=== PATIENT | female | born 1970 | race Caucasian/White ===

== ENCOUNTER 2016-12-15 08:27 | Emergency (ER) | payer MEDICARE | END 2016-12-15 09:25 | disposition home or self-care (01) | LOC: D.ER 08:27 | DX: J06.9 Acute upper respiratory infection, unspecified (principal); J80 Acute respiratory distress syndrome; J44.9 Chronic obstructive pulmonary disease, unspecified ==

== ENCOUNTER → 2016-12-25 14:00 | Outpatient (CLI) | payer MEDICARE | END | disposition home or self-care (01) | LOC: D.CT 14:00 | DX: J44.9 Chronic obstructive pulmonary disease, unspecified (principal) ==

== ENCOUNTER 2017-02-03 06:25 | Emergency (ER) | payer MEDICARE | END 2017-02-03 07:35 | disposition home or self-care (01) | LOC: D.ER 06:25 | DX: J06.9 Acute upper respiratory infection, unspecified (principal); J01.90 Acute sinusitis, unspecified; J02.9 Acute pharyngitis, unspecified; J80 Acute respiratory distress syndrome; J44.9 Chronic obstructive pulmonary disease, unspecified; F17.200 Nicotine dependence, unspecified, uncomplicated ==

== ENCOUNTER 2017-02-04 17:26 | Emergency (ER) | payer MEDICARE ==
[2017-02-04 19:53] LABS: BASOPHILS 0.4 % (0-2); EOSINOPHILS 3.3 % (0-7); HEMATOCRIT 34.6 % (36.0-48.0); HEMOGLOBIN 11.5 g/dL (12-16); IMMATURE GRANULOCYTES 0.2 % (0-5); LYMPHOCYTES 11.6 % (15-50); MCH 30.3 pg (26.0-34.0); MCHC 33.2 g/dL (31.0-37.0); MCV 91.1 fL (80.0-100.0); MEAN PLATELET VOLUME 10.5 fL (7.4-10.4); MONOCYTES 10.3 % (2-11); NEUTROPHILS 74.2 % (40-80); PLATELET COUNT 321 10x3/uL (130-400); RDW 13.2 % (11.5-14.5); WBC 12.5 10x3/uL (4.8-10.8)
[2017-02-04 20:13] LABS: ALBUMIN 2.8 g/dL (3.4-5.0); ANION GAP 14.4 mmol/L (8-16); BILIRUBIN - TOTAL 0.24 mg/dL (0.2-1.3); CALCIUM 8.6 mg/dL (8.5-10.1); CARBON DIOXIDE 24.6 mmol/L (21.0-32.0); CREATININE - SERUM 1.3 mg/dL (0.6-1.3); PROTEIN - SERUM 6.2 g/dL (6.4-8.2)
== END 2017-02-04 21:07 | disposition home or self-care (01) ==
LOC: D.ER 17:26
PROVIDERS: Physician Assistant
DX: R50.9 Fever, unspecified (principal); R53.81 Other malaise; J20.9 Acute bronchitis, unspecified; J44.9 Chronic obstructive pulmonary disease, unspecified; F17.200 Nicotine dependence, unspecified, uncomplicated

== ENCOUNTER → 2017-05-08 13:10 | Outpatient (CLI) | payer MEDICARE, MEDICAID ==
[2017-05-09 10:19] LABS: ANA REFLEX - DIRECT Negative (Negative)
== END | disposition home or self-care (01) ==
LOC: D.RT 13:10
PROVIDERS: Internal Medicine Pulmonary Disease
DX: J18.9 Pneumonia, unspecified organism (principal); R91.1 Solitary pulmonary nodule

== ENCOUNTER 2017-06-26 09:37 | Emergency (ER) | payer MEDICARE, MEDICAID ==
[2017-06-26 10:23] LABS: BASOPHILS 0.6 % (0-2); HEMATOCRIT 45.2 % (36.0-48.0); HEMOGLOBIN 15.4 g/dL (12-16); IMMATURE GRANULOCYTES 0.2 % (0-5); LYMPHOCYTES 28.8 % (15-50); MCH 31.4 pg (26.0-34.0); MCHC 34.1 g/dL (31.0-37.0); MCV 92.2 fL (80.0-100.0); MEAN PLATELET VOLUME 9.5 fL (7.4-10.4); MONOCYTES 10.8 % (2-11); NEUTROPHILS 55.6 % (40-80); PLATELET COUNT 376 10x3/uL (130-400); RDW 12.9 % (11.5-14.5); WBC 10.3 10x3/uL (4.8-10.8)
[2017-06-26 10:30] LABS: APPEARANCE CLOUDY (CLEAR); BACTERIA MANY /hpf (NONE SEEN); BILIRUBIN NEGATIVE (NEGATIVE); COLOR YELLOW (YELLOW); GLUCOSE NEGATIVE (NEGATIVE); KETONE NEGATIVE (NEGATIVE); MUCUS <1+ /lpf (NONE SEEN); NITRITE NEGATIVE (NEGATIVE); PROTEIN 1+ mg/dL (NEGATIVE); SPECIFIC GRAVITY 1.015 (1.005-1.020); UROBILINOGEN NORMAL (NORMAL)
[2017-06-26 10:38] LABS: ALBUMIN 3.8 g/dL (3.4-5.0); ANION GAP 12.7 mmol/L (8-16); BILIRUBIN - TOTAL 0.2 mg/dL (0.2-1.3); CALCIUM 9.2 mg/dL (8.5-10.1); CARBON DIOXIDE 26.3 mmol/L (21.0-32.0); CREATININE - SERUM 1.1 mg/dL (0.6-1.3); PROTEIN - SERUM 7.7 g/dL (6.4-8.2)
[2017-08-15 02:59] VITALS: BMI 29.2
== END 2017-06-26 13:10 | disposition home or self-care (01) ==
LOC: D.ER 09:37
PROVIDERS: Emergency Medicine
DX: N39.0 Urinary tract infection, site not specified (principal); N20.1 Calculus of ureter; J44.9 Chronic obstructive pulmonary disease, unspecified

== ENCOUNTER 2017-08-11 20:11 | Emergency (ER) | payer MEDICARE ==
[2017-08-11 20:42] LABS: BASOPHILS 0.2 % (0-2); EOSINOPHILS 1.5 % (0-7); HEMATOCRIT 37.2 % (36.0-48.0); HEMOGLOBIN 12.8 g/dL (12-16); IMMATURE GRANULOCYTES 0.2 % (0-5); LYMPHOCYTES 13.2 % (15-50); MCH 31.2 pg (26.0-34.0); MCHC 34.4 g/dL (31.0-37.0); MCV 90.7 fL (80.0-100.0); MEAN PLATELET VOLUME 9.8 fL (7.4-10.4); MONOCYTES 9.9 % (2-11); PLATELET COUNT 304 10x3/uL (130-400); RDW 12.6 % (11.5-14.5); WBC 13.8 10x3/uL (4.8-10.8)
[2017-08-11 20:52] LABS: APPEARANCE HAZY (CLEAR); BILIRUBIN NEGATIVE (NEGATIVE); COLOR YELLOW (YELLOW); GLUCOSE NEGATIVE (NEGATIVE); KETONE NEGATIVE (NEGATIVE); NITRITE NEGATIVE (NEGATIVE); PH 6.5 (5.0-6.0); PROTEIN NEGATIVE (NEGATIVE); UROBILINOGEN NORMAL (NORMAL)
[2017-08-11 20:59] LABS: BILIRUBIN - TOTAL 0.24 mg/dL (0.2-1.3); CARBON DIOXIDE 25.7 mmol/L (21.0-32.0); CREATININE - SERUM 1.3 mg/dL (0.6-1.3); POTASSIUM - SERUM 3.7 mmol/L (3.5-5.1)
[2017-08-11 21:04] LABS: AMORPHOUS SEDIMENT >1+ /lpf (NONE SEEN); BACTERIA MODERATE /hpf (NONE SEEN); EPITHELIAL CELLS 0-5 /hpf (0-5); GRANULAR CAST OCC /lpf (NONE SEEN); HYALINE CAST OCC /lpf (NONE SEEN); RED CELLS - URINE 0-5 /hpf (0-5); WHITE CELLS - URINE >50 /hpf (0-5); YEAST >1+ WITH HYPHAE /hpf (NONE SEEN)
[2017-08-15 02:59] VITALS: BMI 29.2
== END 2017-08-11 23:21 | disposition home or self-care (01) ==
LOC: D.ER 20:11
PROVIDERS: Family Medicine
DX: N10 Acute pyelonephritis (principal); F17.200 Nicotine dependence, unspecified, uncomplicated; J80 Acute respiratory distress syndrome; J44.9 Chronic obstructive pulmonary disease, unspecified

== ENCOUNTER 2017-08-14 20:17 | Observation (INO) | payer MEDICARE ==
[~2017-08-14] VITALS: Ht 160 cm; Wt 75.0 kg
[2017-08-14 21:09] LABS: APPEARANCE HAZY (CLEAR); BILIRUBIN NEGATIVE (NEGATIVE); COLOR YELLOW (YELLOW); GLUCOSE NEGATIVE (NEGATIVE); KETONE NEGATIVE (NEGATIVE); NITRITE NEGATIVE (NEGATIVE); PROTEIN NEGATIVE (NEGATIVE); UROBILINOGEN NORMAL (NORMAL)
[2017-08-14 21:11] LABS: BACTERIA MODERATE /hpf (NONE SEEN); EPITHELIAL CELLS 0-5 /hpf (0-5); RED CELLS - URINE 0-5 /hpf (0-5)
[2017-08-14 21:11] LABS: BASOPHILS 0.1 % (0-2); EOSINOPHILS 2.2 % (0-7); HEMATOCRIT 32.9 % (36.0-48.0); HEMOGLOBIN 11.3 g/dL (12-16); IMMATURE GRANULOCYTES 0.3 % (0-5); LYMPHOCYTES 17.3 % (15-50); MCH 30.7 pg (26.0-34.0); MCHC 34.3 g/dL (31.0-37.0); MCV 89.4 fL (80.0-100.0); MEAN PLATELET VOLUME 9.6 fL (7.4-10.4); MONOCYTES 8.6 % (2-11); NEUTROPHILS 71.5 % (40-80); PLATELET COUNT 317 10x3/uL (130-400); RBC 3.68 10x6/uL (4.00-5.40); RDW 12.2 % (11.5-14.5); WBC 9.6 10x3/uL (4.8-10.8)
[2017-08-14 21:18] LABS: ALBUMIN 2.7 g/dL (3.4-5.0); ANION GAP 12.9 mmol/L (8-16); BILIRUBIN - TOTAL 0.26 mg/dL (0.2-1.3); CALCIUM 8.9 mg/dL (8.5-10.1); CARBON DIOXIDE 25.9 mmol/L (21.0-32.0); CREATININE - SERUM 1.1 mg/dL (0.6-1.3); POTASSIUM - SERUM 3.8 mmol/L (3.5-5.1); PROTEIN - SERUM 6.6 g/dL (6.4-8.2)
[2017-08-15] MEDS ORDERED: SYNTHROID175 MCG PO (02:35)
[2017-08-15] MEDS ORDERED: PAXIL20 MG PO (02:36)
[2017-08-15] MEDS ORDERED: TRIGLIDE160 MG PO (02:37)
[2017-08-15] MEDS ORDERED: BAYER CHEWABLE81 MG PO (02:38)
[2017-08-15] MEDS ORDERED: ASCORBIC ACID500 MG PO (02:38)
[2017-08-15] MEDS ORDERED: PROTONIX40 MG PO (02:38)
[2017-08-15] MEDS ORDERED: VITAMIN D2000 UNIT PO (02:39)
[2017-08-15] MEDS ORDERED: LATUDA80 MG PO (02:39)
[2017-08-15] MEDS ORDERED: ZOCOR40 MG PO (02:39)
[2017-08-15] MEDS ORDERED: TRAZODONE HCL50 MG PO (02:49)
[2017-08-15] MEDS ORDERED: ATIVAN0.5 MG PO (02:49)
[2017-08-15 02:59] VITALS: BP 130/77; Ht 160 cm; Wt 75.0 kg
[2017-08-15 03:56] VITALS: BP 122/63
[2017-08-15 06:03] LABS: BASOPHILS 0.2 % (0-2); EOSINOPHILS 2.3 % (0-7); HEMATOCRIT 36.4 % (36.0-48.0); HEMOGLOBIN 12.3 g/dL (12-16); IMMATURE GRANULOCYTES 0.4 % (0-5); LYMPHOCYTES 18.4 % (15-50); MCH 30.5 pg (26.0-34.0); MCHC 33.8 g/dL (31.0-37.0); MCV 90.3 fL (80.0-100.0); MEAN PLATELET VOLUME 10.1 fL (7.4-10.4); NEUTROPHILS 69.7 % (40-80); RBC 4.03 10x6/uL (4.00-5.40); RDW 12.6 % (11.5-14.5); WBC 11.1 10x3/uL (4.8-10.8)
[2017-08-15 06:07] LABS: PLATELET COUNT 382 10x3/uL (130-400)
[2017-08-15 06:26] LABS: ALBUMIN 2.8 g/dL (3.4-5.0); ANION GAP 15.6 mmol/L (8-16); BILIRUBIN - TOTAL 0.3 mg/dL (0.2-1.3); CALCIUM 9.2 mg/dL (8.5-10.1); CARBON DIOXIDE 25.4 mmol/L (21.0-32.0); CREATININE - SERUM 1.1 mg/dL (0.6-1.3); PROTEIN - SERUM 7.1 g/dL (6.4-8.2)
[2017-08-15 08:32] VITALS: BP 105/42
[2017-08-15] MEDS ORDERED: LEVAQUIN750 MG PO (11:33)
== END 2017-08-15 13:01 | disposition home or self-care (01) ==
LOC: D.ER 20:17 → D.EDHOLD 23:43 → D.MS 23:43 → OBSVTIME 23:43 → D.MS 08-15 00:17
PROVIDERS: Family Medicine
DX: N39.0 Urinary tract infection, site not specified (principal); E86.0 Dehydration; G93.49 Other encephalopathy; J44.9 Chronic obstructive pulmonary disease, unspecified; K21.9 Gastro-esophageal reflux disease without esophagitis; F41.9 Anxiety disorder, unspecified; F31.9 Bipolar disorder, unspecified; F32.9 Major depressive disorder, single episode, unspecified; E03.9 Hypothyroidism, unspecified; F17.200 Nicotine dependence, unspecified, uncomplicated; R29.6 Repeated falls

== ENCOUNTER 2017-10-28 19:52 | Emergency (ER) | payer MEDICARE ==
[~2017-10-28] VITALS: Ht 160 cm; Wt 72.7 kg
[~2017-10-28 19:52] MED LIST: ASCORBIC ACID500 MG PO; ATIVAN0.5 MG PO; BAYER CHEWABLE81 MG PO; LATUDA80 MG PO; LEVAQUIN750 MG PO; PAXIL20 MG PO; PROTONIX40 MG PO; SYNTHROID175 MCG PO; TRAZODONE HCL50 MG PO; TRIGLIDE160 MG PO; VITAMIN D2000 UNIT PO; ZOCOR40 MG PO
[2017-10-28 20:32] VITALS: Ht 160 cm; Wt 72.7 kg
[2017-10-28] MEDS ORDERED: DESERYL100 MG PO (20:34)
[2017-10-28] MEDS ORDERED: PAXIL40 MG PO (20:35)
[2017-10-28 21:52] LABS: APPEARANCE CLEAR (CLEAR); BILIRUBIN NEGATIVE (NEGATIVE); COLOR STRAW (YELLOW); GLUCOSE NEGATIVE (NEGATIVE); KETONE NEGATIVE (NEGATIVE); NITRITE NEGATIVE (NEGATIVE); PROTEIN NEGATIVE (NEGATIVE); SPECIFIC GRAVITY 1.005 (1.005-1.020); UROBILINOGEN NORMAL (NORMAL)
[2017-10-28 21:54] LABS: BACTERIA FEW /hpf (NONE SEEN); EPITHELIAL CELLS 0-5 /hpf (0-5); RED CELLS - URINE OCC /hpf (0-5); WHITE CELLS - URINE 0-5 /hpf (0-5)
[2017-10-28] MEDS ORDERED: MACROBID100 MG PO (22:03)
[2017-10-28 22:59] VITALS: BP 117/67
== END 2017-10-28 22:45 | disposition home or self-care (01) ==
LOC: D.ER 19:52
PROVIDERS: Family Medicine
DX: N39.0 Urinary tract infection, site not specified (principal); J44.9 Chronic obstructive pulmonary disease, unspecified; F17.200 Nicotine dependence, unspecified, uncomplicated

== ENCOUNTER → 2018-01-06 16:08 | Outpatient (CLI) | payer MEDICARE ==
[2017-10-28 20:32] VITALS: BMI 28.4
[~2018-01-06 16:08] MED LIST changes: +DESERYL100 MG PO; +MACROBID100 MG PO; +PAXIL40 MG PO
== END | disposition home or self-care (01) ==
LOC: D.MAMMO 11:15
DX: Z12.31 Encounter for screening mammogram for malignant neoplasm of breast (principal)

== ENCOUNTER → 2018-10-21 08:31 | Outpatient (CLI) | payer MEDICARE ==
[2017-10-28 20:32] VITALS: BMI 28.4
--- NOTE | 2018-10-24 10:32 | EC ---
PATIENT:KELLIE DUNBAR DATE OF SERVICE: 10/21/18 SEX: F MEDICAL RECORD: [id number] DATE OF : [birth year] [facility] AGE OF PATIENT: 48 ADMISSION DATE: 10/21/18 REFERRING PHYSICIAN: INTERPRETING PHYSICIAN: CHI RAINEY MD ECHOCARDIOGRAM REPORT ECHO CHARGES 4 ECHO COMPLETE Date: 10/21/18 CLINICAL DIAGNOSIS: SVT H/O HTN ECHOCARDIOGRAPHIC MEASUREMENTS (adult normal given) AC root (d.<3.7cm) 2.6 cm LV Septum d (<1.2 cm> 1.4 cm Valve Excursion 1.4 cm LV Septum (systole) 1.6 cm Left Atria (s.<4.0cm> 2.7 cm LVPW d(<1.2cm) 1.0 cm RV (d.<2.3cm) 1.9 cm LVPW (sytole) 1.6 cm LV diastole(<5.6CM) 4.2 cm MV E-F(>70mm/sec) cm LV systole 2.4 cm LVOT Diameter 1.8 cm MV exc.(>10mm) cm Est.ejection fraction (50-75%) % DOPPLER: LVIT cm/sec A 83.0 cm/sec E 92.0 cm/sec LA cm/sec RVSP 18.0 mmHg LVOT 110 cm/sec AOP1/2T m/s Asc. Ao 117 cm/sec RVOT 105 cm/sec RA cm/sec PA 143 cm/sec AV Gradient Peak 5.5 mmHg AV Mean 2.4 mmHg AV Area 2.6 cm MV Gradient Peak 4.4 mmHg MV Mean 1.6 mmHg MV Area cm COMMENTS: OP - HC General Maintenance Helper: Fela GUTIÉRREZOE Aerospace Manager: 3 Dr. Nelson TAPE# PACS Pericardial Effusion N DATE OF SERVICE: 10/21/2018 Adequate 2-D echo, color-flow and spectral Doppler, and M-mode. Borderline LVH. LV internal dimensions are normal. Wall motion is normal. EF is greater than 55%. Aortic valve is tricuspid. No evidence of stenosis by Doppler interrogation. Left atrium is normal. Mitral valve shows no prolapse. Trace MR. Right-sided chambers are grossly normal. Trace TR. TRANSINT:[id number] Voice Confirmation ID: [id number] DOCUMENT ID: [id number] ECHOCARDIOGRAM REPORT [id number] KELLIE DUNBAR GREGORY A MD at 1032 CC: [id number] DICTATION DATE: 10/23/18 1350 WEB SIZER: 10/23/18 1536 DEP CLI 10/21/18 [facility] [address] [place] [address]
== END | disposition home or self-care (01) ==
LOC: D.HCCARDIO 08:31
PROVIDERS: ATTEND Internal Medicine Interventional Cardiology
DX: R00.2 Palpitations (principal)

== ENCOUNTER 2019-02-09 08:00 | Outpatient (CLI) | payer MEDICARE ==
[2017-10-28 20:32] VITALS: BMI 28.4
== END 2019-02-09 23:59 | disposition home or self-care (01) ==
LOC: D.MAMMO 08:00
PROVIDERS: ATTEND Nurse Practitioner Family
DX: Z12.31 Encounter for screening mammogram for malignant neoplasm of breast (principal)